=== PATIENT | female | born 1935 | race Caucasian/White ===

== ENCOUNTER 2025-05-03 14:30 | Emergency (ER) | payer MEDICARE, OTHER ==
[2025-05-03] MEDS ORDERED: Sodium Chloride 0.9% 10 ML Syringe FLUSH PRN (14:53)
[2025-05-03 15:19] LABS: BASOPHILS PERCENT AUTO 0.3 % (0.0-1.0); EOSINOPHILS PERCENT AUTO 3.4 % (1.0-3.0); LYMPHOCYTES PERCENT AUTO 18.9 % (20.5-50.1); MONOCYTES PERCENT AUTO 11.3 % (2-8); NEUTROPHILS PERCENT AUTO 66.1 % (42.2-75.2); PLATELET COUNT,PLT 320 10^3/uL (150-450); RED BLOOD CELL COUNT 3.87 10^6/uL (4.2-5.4); WHITE BLOOD CELL COUNT,WBC 5.9 10^3/uL (5.0-10.0)
[2025-05-03 15:37] LABS: INR 1.0 (0.9-1.2); PTT,PARTIAL THROMBOPLSTIN TIME 28.7 SEC (22.0-34.0)
[2025-05-03 15:44] LABS: A/G RATIO 1.1; ALANINE AMINOTRANSFERASE,ALT 13.0 U/L (14-59); ASPARTATE AMNIOTRANSFERASE,AST 14.0 U/L (15-37); BILIRUBIN TOTAL 0.3 mg/dL (0.2-1.0); BLOOD UREA NITROGEN,BUN 20.0 mg/dL (7-18); CARBON DIOXIDE,CO2 28.0 mmol/L (21-32); CHLORIDE,CL 100.0 mmol/L (98-107); CREATININE 0.84 mg/dL (0.55-1.02); EST CRCL DRUG DOSING (CG) 38.12 mL/min; ESTIMATED GFR 67.0 mL/min (>=60); GLUCOSE RANDOM 99.0 mg/dL (70-99); LACTIC ACID 0.7 mmol/L (0.4-2.0); POTASSIUM,K 3.6 mmol/L (3.5-5.1); PROTEIN TOTAL,TP 6.5 g/dL (6.4-8.2); SODIUM,NA 135.0 mmol/L (136-145)
[2025-05-03 15:46] LABS: D-DIMER QUANTITATIVE 1040.0 ng/mL (0-400)
[2025-05-03 16:07] LABS: APPEARANCE,URINE CLEAR (CLEAR); GLUCOSE,URINE NEGATIVE (NEGATIVE); OCCULT BLOOD,URINE TRACE-INTACT (NEGATIVE)
[2025-05-03] MEDS ORDERED: Nitrofurantoin Monohydrate/Macrocrystalline 100 MG Cap PO ONE (16:18)
[2025-05-03 16:31] LABS: EPITHELIAL CELLS,URINE FEW /HPF (NOT SEEN)
[2025-05-03] MEDS: Levofloxacin/Dextrose 5%-Water 750 MG in Premix Bag 1 BAG IV ONE (17:07)
[2025-05-03 22:09] VITALS: BP 174/78; PULSE 80
== END 2025-05-03 22:11 ==
LOC: DL.ED 14:30
DX: J18.9 Pneumonia, unspecified organism (principal); N39.0 Urinary tract infection, site not specified; N18.9 Chronic kidney disease, unspecified; E03.9 Hypothyroidism, unspecified; Z79.899 Other long term (current) drug therapy; Z88.6 Allergy status to analgesic agent; Z88.8 Allergy status to other drugs, medicaments and biological substances; Z88.1 Allergy status to other antibiotic agents; Z88.7 Allergy status to serum and vaccine
CPT/HCPCS: 70450; 71045; 71275; 80053; 81001; 83605; 84484; 85025; 85379; 85610; 85730; 87086; 87088; 87186; 87428; 93005; 93010; 96374; 99284; 99285; A9270; J1956; J7030

== ENCOUNTER 2025-06-03 08:35 | Emergency (ER) | payer MEDICARE, OTHER ==
[2025-06-03 09:03] LABS: BASOPHILS PERCENT AUTO 0.5 % (0.0-1.0); EOSINOPHILS PERCENT AUTO 3.2 % (1.0-3.0); LYMPHOCYTES PERCENT AUTO 21.8 % (20.5-50.1); MONOCYTES PERCENT AUTO 12.3 % (2-8); NEUTROPHILS PERCENT AUTO 62.2 % (42.2-75.2); PLATELET COUNT,PLT 327 10^3/uL (150-450); RED BLOOD CELL COUNT 4.19 10^6/uL (4.2-5.4); WHITE BLOOD CELL COUNT,WBC 5.7 10^3/uL (5.0-10.0)
[2025-06-03 09:28] LABS: BLOOD UREA NITROGEN,BUN 16.0 mg/dL (7-18); CARBON DIOXIDE,CO2 28.0 mmol/L (21-32); CHLORIDE,CL 104.0 mmol/L (98-107); CREATININE 0.92 mg/dL (0.55-1.02); EST CRCL DRUG DOSING (CG) 34.29 mL/min; GLUCOSE RANDOM 99.0 mg/dL (70-99); POTASSIUM,K 4.3 mmol/L (3.5-5.1); SODIUM,NA 139.0 mmol/L (136-145)
[2025-06-03 09:30] LABS: ESTIMATED GFR 60.0 mL/min (>=60)
[2025-06-03 10:01] LABS: APPEARANCE,URINE CLEAR (CLEAR); GLUCOSE,URINE NEGATIVE (NEGATIVE); OCCULT BLOOD,URINE NEGATIVE (NEGATIVE)
[2025-06-03 10:10] LABS: EPITHELIAL CELLS,URINE RARE /HPF (NOT SEEN)
[2025-06-03 10:52] VITALS: BP 165/77; PULSE 60
== END 2025-06-03 10:30 | disposition home or self-care (01) ==
LOC: DL.ED 08:35
DX: R41.0 Disorientation, unspecified (principal); N18.9 Chronic kidney disease, unspecified; E03.9 Hypothyroidism, unspecified; Z88.6 Allergy status to analgesic agent; Z91.048 Other nonmedicinal substance allergy status; Z88.7 Allergy status to serum and vaccine; Z88.8 Allergy status to other drugs, medicaments and biological substances; Z79.890 Hormone replacement therapy; Z79.899 Other long term (current) drug therapy
CPT/HCPCS: 36415; 80048; 81001; 85025; 99285

== ENCOUNTER 2025-07-12 18:43 | Emergency (ER) | payer MEDICARE, OTHER ==
[2025-07-12 18:55] VITALS: BP 190/82; PULSE 59
[2025-07-12 21:09] LABS: APPEARANCE,URINE CLEAR (CLEAR); GLUCOSE,URINE NEGATIVE (NEGATIVE); OCCULT BLOOD,URINE NEGATIVE (NEGATIVE)
[2025-07-12 21:22] LABS: EPITHELIAL CELLS,URINE OCCASIONAL /HPF (NOT SEEN)
== END 2025-07-12 22:55 | disposition home or self-care (01) ==
LOC: DL.ED 18:43
DX: M79.662 Pain in left lower leg (principal); R41.0 Disorientation, unspecified; E03.9 Hypothyroidism, unspecified; Z88.7 Allergy status to serum and vaccine; Z88.8 Allergy status to other drugs, medicaments and biological substances; Z91.09 Other allergy status, other than to drugs and biological substances; Z79.890 Hormone replacement therapy; Z79.899 Other long term (current) drug therapy; W19.XXXA Unspecified fall, initial encounter
CPT/HCPCS: 73590-LT; 81001; 93005; 99285; A9270-GY